=== PATIENT | female | born 1980 | race African-American/Black ===

== ENCOUNTER 2020-01-25 01:52 | Emergency (ER) | payer OTHER ==
[~2020-01-25] VITALS: Ht 170.2 cm; Wt 68.9 kg
--- NOTE | 2020-01-25 01:56 | NUR ---
PATIENT UNWILLING TO PROVIDE NAME AND DATE OF .
--- NOTE | 2020-01-25 02:02 | NUR ---
SEEN AND EXAMINED BY DR. RODRIUGEZ.
--- NOTE | 2020-01-25 02:15 | NUR ---
PT REFUSING TO BE TREATED W/ ANY MEDICATIONS. AT BEDSIDE
--- NOTE | 2020-01-25 02:16 | NUR ---
PT OFFERED WARM PACKS. PT REFUSED. AWARE
--- NOTE | 2020-01-25 02:40 | NUR ---
I SPOKE TO THE PT REGARDING HER REFUSING TO TAKE MEDIACTIONS. PT STATED SHE WOULD LIKE AN ALTERNATIVE. PT OFFERED WARM PACKS BUT THEN REFUSED. PT STATED SHE WILL USE HER LAPTOP TO LOOK UP A "MAGIC TREATMENT." PT REFUSING TO BE DISCHARGED. PT ASKED TO SPEAK TO THE [employer] SUPERVISOR/ SUP AT BEDSIDE.
--- NOTE | 2020-01-25 03:10 | NUR ---
pt ambulatory with steady gait to exit the er. Patient discharged to home in stable condition. Written and verbal after care instructions given.
[2020-01-25 06:46] VITALS: BP 128/74
== END 2020-01-25 06:46 | disposition home or self-care (01) ==
LOC: ER 01:53 → EDBD 01:53 → ER 06:46
DX: M54.5 Low back pain (principal); R51.9 Headache, unspecified; F20.9 Schizophrenia, unspecified